=== PATIENT | male | born 1985 | race Asian ===

== ENCOUNTER 2016-08-06 21:28 | Emergency (ER) | payer BC ==
[~2016-08-06] VITALS: Ht 170.2 cm; Wt 73.0 kg
--- NOTE | 2016-08-06 21:31 | ED.ADGEN ---
Adult General Chief Complaint Chief Complaint " .. I feel like I got the flu or strept throat.. It started this morning... I got fever and chills.. a little cough... but yesterday... I did get bit my brothers dog " Jhoan.".. . He's a [place]on.. I was reaching down to pet him and he bit my Rt. hand.. because I was near his bone... " " He he supposed to be up -to-date with shots, but now my hand is swollen and tender..." HPI HPI Patient is a 30 year old male who presents with above hx and complaints of fever , chills, pharyngitis, and malaise. Patient did not receive flu vaccination this year. Patient does not remember his last tetanus shot. Patient denies any recent travel or specific ill contacts. Patient is normally healthy. Patient also complaining of right hand pain where his brother's dog bit him. Pt. does have puncture wounds, erythema and edema of Rt. hand. Distal neurovascular intact. Pt. is right hand dominate. Dog reportedly has been acting normally and his aggressive behavior is not uncharacteristic for him. Review of Systems Review of Systems Constitutional: Complaints of fever or chills [] Eyes: Denies change in visual acuity, redness, or eye pain [] HENT: Complaints of nasal congestion and sore throat [] Respiratory: Complaints of cough Cardiovascular: No additional information not addressed in HPI [] GI: Denies abdominal pain, nausea, vomiting, bloody stools or diarrhea [] : Denies dysuria or hematuria [] Musculoskeletal: Denies back pain or joint pain [] Integument: Denies rash or skin lesions []Complaints of right hand dog bite Neurologic: Denies headache, focal weakness or sensory changes [] Endocrine: Denies polyuria or polydipsia [] Family History Family History Non-contributory Current Medications Current Medications Current Medications Medications (Trade) Dose Ordered Sig/Migdalia Start Time Stop Time Status Last Admin Dose Admin Ceftriaxone Sodium 2 gm 2 gm 1X ONCE 08/06/16 23:00 08/06/16 23:01 DC 08/07/16 00:04 2 GM Diphtheria/ Tetanus/Acell Pertussis (Boostrix) 0.5 ml ONCE ONCE 08/06/16 23:00 08/06/16 23:01 DC 08/07/16 00:08 0.5 ML Hydrocodone Bitartrate/ Ibuprofen (Vicoprofen 7.5-200) 2 tab 1X ONCE 08/06/16 23:00 08/06/16 23:01 DC 08/07/16 00:03 2 TAB Lidocaine HCl 20 ml STK-MED ONCE 08/07/16 00:12 08/07/16 00:13 DC Metronidazole (Flagyl Premix) 100 ml @ 200 mls/hr 1X ONCE 08/06/16 23:00 08/07/16 00:18 DC Metronidazole (Flagyl) 500 mg 1X ONCE 08/07/16 00:30 08/07/16 00:31 DC 08/07/16 00:44 500 MG Ondansetron HCl (Zofran Odt) 4 mg 1X ONCE 08/07/16 01:30 08/07/16 01:31 DC 08/07/16 01:09 4 MG Rabies Immune Globulin (Imogam Rabies) 5 ml ONCE ONCE 08/06/16 23:00 08/06/16 23:01 DC 08/07/16 00:30 5 ML Rabies Vaccine Human Diploid Cell (Imovax Rabies 2.5 Unit / ml) 1 ml ONCE ONCE 08/06/16 23:00 08/06/16 23:01 DC 08/06/16 23:00 1 ML Allergies Allergies Allergies Coded Allergies Type Severity Reaction Last Updated Verified procaine Allergy Intermediate 08/06/16 Yes Physical Exam Physical Exam Constitutional: Well developed, well nourished, in moderate distress, non-toxic appearance. [] HENT: Normocephalic, atraumatic, bilateral external ears normal, oropharynx moist,injected pharynx, no oral exudates, nose rhinorrhea. Eyes: PERRLA, EOMI, conjunctiva normal, no discharge. Glasses. Neck: Normal range of motion, no tenderness, supple, no stridor. [] Cardiovascular:Heart rate regular rhythm, no murmur [] Lungs & Thorax: Bilateral breath sounds clear to auscultation [] Abdomen: Bowel sounds normal, soft, no tenderness, no masses, no pulsatile masses. [] Skin: Warm, dry, no erythema, no rash. Dog bite Rt. hand as per HPI. Back: No tenderness, no CVA tenderness. [] Extremities: Rt. hand tenderness, no cyanosis, no clubbing, ROM intact, Rt hand edema. [] Neurologic: Alert and oriented X 3, normal motor function, normal sensory function, no focal deficits noted. [] Psychologic: Affect normal, judgement normal, mood normal. [] Current Patient Data Vital Signs Vital Signs Date Time Temp Pulse Resp B/P Pulse Ox O2 Delivery O2 Flow Rate FiO2 08/07/16 01:25 97.7 08/06/16 21:45 86 20 96 Room Air Lab Results Laboratory Tests Test 08/06/16 22:00 Influenza Type A (Rapid) Negative (NEGATIVE) Influenza Type B (Rapid) Negative (NEGATIVE) Group A Streptococcus Rapid Negative (NEGATIVE) EKG EKG [] Radiology/Procedures Radiology/Procedures My interpretation of Rt. hand film shows no fx. but has edema. [] Course & Med Decision Making Course & Med Decision Making Pertinent Labs and Imaging studies reviewed. (See chart for details). Dog must be confined and under observation. Patient take Augmentin 875 twice day x10 days . Patient take Flagyl 500 mg 3 times a day. x 10 days. Elevation. Rest. May take Tylenol and ibuprofen for pain. Patient take Vicoprofen up 4 times a day for marked pain. Patient warned that disability may occur, and if no marked improvement will need admission and IV antibiotics and consult with hand surgery. Further rabies vaccination may be necessary, especially if dog becomes ill. Police notification to be completed. Must follow up with primary. Repeat Rabies vaccination needed. Re-exam in 3 days or sooner if no improvement and re-vaccination in day 3, 7, and 14 . [] Final Impression Final Impression 1. Fever and Chills- Viral Syndrome 2. Dog bite[]- Rt. hand cellulitis Problems: Dragon Disclaimer Dragon Disclaimer This electronic medical record was generated, in whole or in part, using a voice recognition dictation system. LILLY MARIE MD Aug 06, 2016 21:31
[2016-08-06 21:45] VITALS: BP 138/70
[2016-08-06] MEDS ORDERED: METR500T PO (22:23)
[2016-08-06] MEDS ORDERED: AMOX1TAB61 PO (22:23)
[2016-08-06] MEDS ORDERED: HYDR-79 PO (22:23)
[2016-08-06] MEDS ORDERED: RABIES IMMUNE GLOBULIN PF 300 UNIT/2 ML VIAL. VAX IM ONE (22:30)
[2016-08-06] MEDS ORDERED: METRONIDAZOLE 500mg PREMIX 100 ML IV ONE (23:00)
[2016-08-06] MEDS: RABIES VIRUS VACC PF 2.5 UNIT / 1 ML VIAL. VAX IM ONE (23:00)
[2016-08-06 23:04] LABS: INFLUENZA A PATIENT NEGATIVE (NEGATIVE); INFLUENZA B PATIENT NEGATIVE (NEGATIVE)
[2016-08-07] MEDS: HYDROCODON/IBUPROFEN 7.5/200MG TABLET. PO ONE (00:03)
[2016-08-07] MEDS: CEFTRIAXONE IM 1 GM VIAL. IM ONE (00:04)
[2016-08-07] MEDS: DIPHTH,PERTUSS(ACELL),TET TOX 0.5 ML DISP.SYRIN. VAX IM ONE (00:08)
[2016-08-07] MEDS ORDERED: LIDOCAINE 1% Multi-Dose 20 ML VIAL. ONE (00:12)
[2016-08-07] MEDS: RABIES IMMUNE GLOBULIN PF 300 UNIT/2 ML VIAL. VAX IM ONE (00:30)
[2016-08-07] MEDS: METRONIDAZOLE 500 MG TABLET PO ONE (00:44)
[2016-08-07] MEDS: ONDANSETRON ODT 4 MG TAB.RAPDIS PO ONE (01:09)
--- NOTE | 2016-08-07 08:21 | RAD ---
Indication: Dog bite last night. Attention to first metacarpal. Technique: 3 views of the right hand are submitted for review. No comparison is available. Findings: There is soft tissue swelling noted. There is no radiopaque foreign body. There is no fracture or dislocation. Impression: Negative for radiopaque foreign body.
== END 2016-08-07 01:26 | disposition home or self-care (01) ==
LOC: ER 21:28
DX: B34.9 Viral infection, unspecified (principal); S61.451A Open bite of right hand, initial encounter; L03.113 Cellulitis of right upper limb; Z88.4 Allergy status to anesthetic agent; W54.0XXA Bitten by dog, initial encounter; Y93.89 Activity, other specified; Y99.8 Other external cause status; Y92.89 Other specified places as the place of occurrence of the external cause
CPT/HCPCS: 73130; 87070; 87804; 87880; 90376; 90471; 90472; 90675; 90715; 96372; 99284; J0696; Q0162; 90375

== ENCOUNTER 2021-08-18 16:22 | Emergency (ER) | payer BC ==
[~2021-08-18] VITALS: Ht 167.6 cm; Wt 66.8 kg
[~2021-08-18 16:22] MED LIST: AMOX1TAB61 PO; HYDR-1179 PO; METR500T PO
--- NOTE | 2021-08-18 18:43 | PHYS DOC ---
Past History Past Medical History: Depression (TG LEONARD) Past Surgical History: Other Additional Past Surgical Histo: hernia (TG LEONARD) Additional Smoking Information: vapes Alcohol Use: Occasionally Drug Use: Cocaine Social History Narrative: Patient reports escalating cocaine use for weeks. (TG LEONARD) General Adult EDM: Chief Complaint: CHEST PAIN HPI: HPI: Patient is a 35 year old male addicted to cocaine who presents with chest pain, palpitations and anxiety. Patient admittedly has used copious amounts of cocaine over the past few weeks, increasing each weeks. He does admit that he is addicted to cocaine at this time and has struggled with addiction to other substances in the past. He presents today as he is afraid that his heart is going to "burst." Patient states he last used cocaine just shortly before presenting to the emergency department. He states he has had chest pain as a result of his cocaine use in the past, but it has never felt as intense as it does today. Patient denies associated symptoms including weakness, diaphoresis, nausea/vomiting. (TG LEONARD) Review of Systems: Review of Systems: ROS negative or noncontributory except as mentioned in HPI. (TG LEONARD) Allergies: Allergies: Allergies Coded Allergies Type Severity Reaction Last Updated Verified procaine Allergy Intermediate 08/18/21 Yes (TG LEONARD) Physical Exam: PE: Constitutional: Well developed, well nourished, patient is very fidgety and appears anxious. HENT: Normocephalic, atraumatic, bilateral external ears normal, oropharynx moist, nose normal. Eyes: PERRL, bilateral pupils dilated, EOMI, conjunctiva normal, no discharge. Neck: Normal range of motion, no stridor. Cardiovascular: Heart regular rate and rhythm, no apparent murmur. Lungs & Thorax: Bilateral breath sounds clear to auscultation. Skin: Warm, dry, no erythema, no rash. Neurologic: Alert and oriented x4, normal motor function, normal sensory function, steady and symmetrical upright gait, no focal deficits noted. (TG LEONARD) Current Patient Data: Labs: Laboratory Tests Test 08/18/21 16:35 08/18/21 19:05 Troponin I High Sensitivity 9 ng/L (4-75) Urine Collection Type Unknown Urine Color Yellow Urine Clarity Clear Urine pH 6.0 Urine Specific [place] 1.025 Urine Protein Neg (NEG-TRACE) Urine Glucose (UA) Neg mg/dL (NEG) Urine Ketones (Stick) 15 mg/dL (NEG) Urine Blood Neg (NEG) Urine Nitrite Neg (NEG) Urine Bilirubin Neg (NEG) Urine Urobilinogen Dipstick 0.2 mg/dL (0.2 mg/dL) Urine Leukocyte Esterase Neg (NEG) Urine RBC 0 /HPF (0-2) Urine WBC Rare /HPF (0-4) Urine Squamous Epithelial Cells Occ /LPF Urine Bacteria 0 /HPF (0-FEW) Urine Opiates Screen Neg (NEG) Urine Methadone Screen Neg (NEG) Urine Barbiturates Neg (NEG) Urine Phencyclidine Screen Neg (NEG) Urine Amphetamine/Methamphetamine Neg (NEG) Urine Benzodiazepines Screen Neg (NEG) Urine Cocaine Screen Pos (NEG) Urine Cannabinoids Screen Pos (NEG) Urine Ethyl Alcohol Neg (NEG) Vital Signs: Vital Signs Date Time Temp Pulse Resp B/P (MAP) Pulse Ox O2 Delivery O2 Flow Rate FiO2 08/18/21 19:56 95 18 142/75 (97) 97 Room Air 08/18/21 16:29 98.3 108 24 169/112 (131) 98 (TG LEONARD) EKG: EKG: EKG Interpreted by Dr. Chaudhari at 1632: Regular rate and rhythm 97 bpm with no ectopic beats. QT 336 ms/QTc 431 ms. No STEMI. (TG LEONARD) Radiology/Procedures: Radiology/Procedures: PACS system having difficulties, radiology reads only available within [employer]. Impression is dictated using Dragon. Impression: No acute radiographic abnormality. Electronically signed by: Eddie Garcia MD [facility] (TG LEONARD) Heart Score: C/O Chest Pain: Yes HEART Score for Chest Pain: HEART Score for Chest Pain Response (Comments) Value History Moderately Suspicious 1 ECG Normal 0 Age < 45 0 Risk Factors No Risk Factors 0 Troponin < Normal Limit 0 Total 1 Risk Factors: Risk Factors: None Risk Scores: Score 0 - 3: 2.5% MACE over next 6 weeks - Discharge Home Score 4 - 6: 20.3% MACE over next 6 weeks - Admit for Clinical Observation Score 7 - 10: 72.7% MACE over next 6 weeks - Early Invasive Strategies (TG LEONARD) Course & Med Decision Making: Course & Med Decision Making Pertinent Labs and Imaging studies reviewed. (See chart for details) Patient is a 35-year-old male who admits to cocaine addiction who presents with palpitations, chest pain and anxiety. Patient admits to last using cocaine just prior to arrival in the emergency department. Work-up today will include urinalysis, urine drug screen, EKG and troponin. Patient's blood pressure continues to be elevated here in the department, which is almost certainly due to cocaine intoxication. Urine drug screen was positive for cocaine and marijuana. The rest of his work-up is unremarkable. Patient is strongly encouraged to seek detox and rehab treatment, though he declines evaluation by our psychiatric assessment team to provide these resources directly. He was provided with phone numbers and addresses of several clinics that might be able to help him going forward. Strict return precautions were provided. Patient understands and is agreeable to discharge plan. (TG LEONARD) Dragon Disclaimer: Dragon Disclaimer: This electronic medical record was generated, in whole or in part, using a voice recognition dictation system. (TG LEONARD) Attending Co-Sign The patient was seen and interviewed as well as examined at the bedside. The chart was reviewed. The case was discussed. Agree with the plan of care. (SANDHYA REYES DO) Departure Departure: Impression: Primary Impression: Cocaine abuse with cocaine-induced anxiety disorder Additional Impression: Cocaine abuse with intoxication Disposition: 01 HOME / SELF CARE / HOMELESS Condition: STABLE Referrals: ROCKY JEFFERS MD (PCP) Patient Instructions: Cocaine Abuse and Chemical Dependency Additional Instructions: EMERGENCY DEPARTMENT GENERAL DISCHARGE INSTRUCTIONS Thank you for coming to [facility] (ED) today and trusting us with you care. We trust that you had a positive experience in our Emergency Department. If you wish to speak to the department management, you may call the director at [phone]. YOUR FOLLOW UP INSTRUCTIONS ARE FOLLOWS: 1. Follow up with your primary care doctor. If you do not have a primary doctor, please ask for a resource list of physicians or clinics that may be able to assist you with follow up care. 2. The emergency provider has interpreted your imaging studies, if any were ordered. The radiology employment law specialist also reviewed them. If there is a change in the findings, you will be notified in 48 hours when at all possible. 3. If a lab test or culture has been done, your results will be reviewed and you will be notified if you need a change in treatment. 4. Follow instructions verbalized to you and refer to the printouts if needed. ADDITIONAL INSTRUCTIONS AND INFORMATION: 1. Your care today has been supervised by a physician who is specially trained in emergency care. Many problems require more than one evaluation for a complete diagnosis and treatment. We recommend that you schedule your follow up appointment as recommended to ensure complete treatment of you illness or injury. If you are unable to obtain follow up care and continue to have a problem, or if your condition worsens, we recommend that you return to the ED. 2. We are not able to safely determine your condition over the phone nor are we able to give sound medical advice over the phone. For these safety reasons, if you call for medical advice we will ask you to come to the ED for further evaluation. 3. If you have any questions regarding these discharge instructions please call the ED at [phone]. SAFETY INFORMATION: In the interest of safety, wellness, and injury prevention; we encourage you to wear your seat belt, if you smoke; quite smoking, and we encourage family to use a protective helmet for bicycling and other sporting events that present an increased risk for head injury. IF YOUR SYMPTOMS WORSEN OR NEW SYMPTOMS DEVELOP, OR YOU HAVE CONCERNS ABOUT YOUR CONDITION; OR IF YOUR CONDITION WORSENS WHILE YOU ARE WAITING FOR YOUR FOLLOW UP APPOINTMENT; EITHER CONTACT YOUR PRIMARY CARE DOCTOR, THE PHYSICIAN WHOSE NAME AND NUMBER YOU WERE GIVEN, OR RETURN TO THE ED IMMEDIATELY. TG LEONARD Aug 18, 2021 18:43 SANDHYA REYES DO Aug 19, 2021 18:28
[2021-08-18 19:29] LABS: BARBITURATES NEG (NEG); BENZODIAZEPINES NEG (NEG); CANNABINOIDS POS (NEG); COCAINE POS (NEG); METHADONE NEG (NEG); OPIATES NEG (NEG); PHENCYCLIDINE NEG (NEG)
[2021-08-18 19:32] LABS: AMPHETAMINE/METHAMPHETAMINE NEG (NEG)
[2021-08-18 19:35] LABS: BACTERIA,URINE 0 /HPF (0-FEW); CLARITY,URINE CLEAR; COLOR,URINE YELLOW; GLUCOSE,URINE NEG (NEG); NITRITE,URINE NEG (NEG); RBC,URINE 0 /HPF (0-2); SQUAMOUS EPITHELIAL CELL,UR OCC /LPF; UROBILINOGEN,URINE 0.2 mg/dL (0.2 mg/dL); WBC,URINE RARE /HPF (0-4)
[2021-08-18 19:56] VITALS: BP 142/75
--- NOTE | 2021-08-19 11:42 | EKG ---
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
--- NOTE | 2021-08-19 11:43 | RAD ---
Single view chest dated 08/18/2021 5:32 PM: COMPARISON: 08/16/2004 Clinical Indication: Chest pain. Findings: Single upright portable exam of the chest was performed. Heart size and mediastinal contours are with in normal limits. Lungs are clear. No consolidation or pleural effusion. No pneumothorax. IMPRESSION: No acute radiographic abnormality. Electronically signed by: Eddie Garcia MD (08/18/2021 5:32 PM) [id number]
== END 2021-08-18 19:56 | disposition home or self-care (01) ==
LOC: ER 16:22
DX: F14.180 Cocaine abuse with cocaine-induced anxiety disorder (principal); F14.129 Cocaine abuse with intoxication, unspecified; F17.200 Nicotine dependence, unspecified, uncomplicated; Z88.4 Allergy status to anesthetic agent
CPT/HCPCS: 36415; 71045; 80307; 81001; 84484; 93005; 99285